=== PATIENT | female | born 1975 | race Caucasian/White ===

== ENCOUNTER 2018-12-12 17:23 | Emergency (ER) | payer MEDICAID ==
[~2018-12-12] VITALS: Ht 170.2 cm; Wt 65.2 kg
[~2018-12-12 17:23] MED LIST: ALPR-475; ARIP2TAB2; CITA10TA8; CITA20TA9 PO; DEPRESSION MED PO; LAMO2TB. PO; OXYC20TA42; RISP2TAB35 PO; TRAZ-137 PO
--- NOTE | 2018-12-12 17:29 | NUR ---
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
[2018-12-12 17:34] VITALS: BP 133/76
--- NOTE | 2018-12-12 18:00 | NUR ---
claims clerk note: [email or web address] informed this RN that they called pt into draw room to collect ordered blood samples. [email or web address] informs this RN that they missed the first time they attempted to draw blood and pt became hostile with the two lab techs. Pt left draw room, left deparment and walked off property.
--- NOTE | 2018-12-12 18:07 | NUR ---
inweaver note: Pt back in lobby at this time.
--- NOTE | 2018-12-12 18:14 | NUR ---
Pt to room from lobby.
--- NOTE | 2018-12-12 18:38 | NUR ---
PT PRESENTED TO ED WITH POSSIBLE SPONGE IN VAGINA FOR A FEW DAYS. PT STATED SHE HAS HAD A DISCHARGE. PT PLACED IN ROOM AND PLACED ON BP AND CONT.PULSE OXIMETE. ASSESSMENT COMPLETED AND AWAITING .
--- NOTE | 2018-12-12 19:04 | NUR ---
pt placed on pelvic bed. pt refusing blood work and md aware.
--- NOTE | 2018-12-12 19:04 | NUR ---
report given to melanie parikh
--- NOTE | 2018-12-12 19:13 | NUR ---
RECEIVED BS REPORT FROM [facility] AT ABOUT 1855 TO ASSUME CARE OF PT. PT. TRANSFERED OVER TO [employer]. PA AT BS FOR EVAL NOW.
[2018-12-12 19:22] LABS: CLUE CELLS NONE SEEN (NONE SEEN)
[2018-12-12 19:23] LABS: WET PREP WBCS FEW (FEW)
--- NOTE | 2018-12-12 19:57 | NUR ---
PT. NOT IN ROOM. UNABLE TO LOCATE IN DEPARTMENT. TERESA CHRISTINA UPDATED.
--- NOTE | 2018-12-12 20:08 | NUR ---
STILL UNABLE TO LOCATE PT. IN DEPARTMENT.
== END 2018-12-12 18:03 | disposition home or self-care (01) ==
LOC: ED 17:57
DX: Z03.89 Encounter for observation for other suspected diseases and conditions ruled out (principal)
CPT/HCPCS: 87210; 87491; 87591; 87808; 99283

== ENCOUNTER 2019-05-24 16:13 | Emergency (ER) | payer MEDICAID ==
[~2019-05-24 16:13] MED LIST changes: -ALPR-475; +ALPR0.5T7
--- NOTE | 2019-05-24 16:28 | NUR ---
CALLED PT NO ANSWER
--- NOTE | 2019-05-24 16:42 | NUR ---
CALLED PATIENT NO ANSWER
--- NOTE | 2019-05-24 16:57 | NUR ---
CALLED PATIENT NO ANSWER
== END 2019-05-24 16:58 | disposition left against medical advice (07) ==
LOC: ED 16:47
DX: M79.641 Pain in right hand (principal); Z53.21 Procedure and treatment not carried out due to patient leaving prior to being seen by health care provider

== ENCOUNTER 2019-08-30 23:31 | Emergency (ER) | payer MEDICAID ==
[~2019-08-30] VITALS: Ht 167.6 cm; Wt 66.6 kg
[~2019-08-30 23:31] MED LIST changes: -TRAZ-137 PO; +TRAZ-175 PO
--- NOTE | 2019-08-31 00:17 | NUR ---
[id number]
--- NOTE | 2019-08-31 00:36 | NUR ---
JUANCARLOS RN: PT TO RM FROM [facility]. PA AT BEDSIDE TO ALEJANDRO.
[2019-08-31 00:50] VITALS: BP 120/83
[2019-08-31] MEDS ORDERED: AMOXICILLIN 500 MG CAPSULE PO ONE (01:00)
[2019-08-31] MEDS ORDERED: DEXAMETHASONE 4 MG TABLET PO ONE (01:00)
[2019-08-31] MEDS ORDERED: DEXAMETHASONE 4 MG TABLET ONE (01:02)
[2019-08-31] MEDS ORDERED: AMOXICILLIN 500 MG CAPSULE ONE (01:02)
--- NOTE | 2019-08-31 01:19 | NUR ---
Patient given discharge instructions and they have confirmed that they understand the instructions. Patient ambulatory with steady gait.
== END 2019-08-31 01:21 | disposition home or self-care (01) ==
LOC: ED 08-31
DX: J02.0 Streptococcal pharyngitis (principal); F17.200 Nicotine dependence, unspecified, uncomplicated
CPT/HCPCS: 99283

== ENCOUNTER 2020-02-11 23:12 | Emergency (ER) | payer MEDICAID ==
[~2020-02-11] VITALS: Ht 170.2 cm; Wt 67.0 kg
[2020-02-11 23:18] VITALS: BP 153/96
== END 2020-02-12 01:38 | disposition home or self-care (01) ==
LOC: ED 02-12
DX: M19.041 Primary osteoarthritis, right hand (principal); G89.11 Acute pain due to trauma; F17.210 Nicotine dependence, cigarettes, uncomplicated
CPT/HCPCS: 29125; 99283; 99406